=== PATIENT | female | born 1980 ===

== ENCOUNTER 2016-12-18 16:48 | Emergency (ER) | payer OTHER ==
[2016-09-12 13:49] VITALS: BMI 37.4
== END 2016-12-18 20:37 | disposition left against medical advice (07) ==
LOC: H.ER 16:48
DX: Z02.89 Encounter for other administrative examinations (principal)

== ENCOUNTER 2017-02-04 17:39 | Emergency (ER) | payer MEDICAID, OTHER ==
[2017-02-04 17:39] VITALS: BMI 37.4
[2017-02-04 18:10] VITALS: PULSE 86; RESP 18; TEMP 98.1; O2SAT 100
--- NOTE | 2017-02-04 18:31 | ED PDOC ---
HPI: Abdomen Time Seen by Provider: 02/04/17 17:49 Chief Complaint (Nursing): Abdominal Pain Chief Complaint (Provider): Abdominal Pain History Per: Patient Additional Complaint(s): Pt is 36 yo female, no PMH, presents to ED with complaints of lower abdominal cramping, RLQ, that is intermittent and "stabbing" in nature. Pt is approximately 11 weeks , pt is A2 M2. Pt denies spotting or bleeding, nausea or vomiting. Pain has been intensifying. Past Medical History Reviewed: Nursing Documentation, Vital Signs Vital Signs: Last Vital Signs Temp 98.1 F 02/04/17 18:07 Pulse 86 02/04/17 18:07 Resp 18 02/04/17 18:07 BP Pulse Ox 100 02/04/17 18:31 - Medical History PMH: No Chronic Diseases - Surgical History Surgical History: No Surg Hx - Family History Family History: States: No Known Family Hx, Unknown Family Hx - Living Arrangements Living Arrangements: With Family - Social History Current smoker - smoking cessation education provided: No Alcohol: None Drugs: Denies - Home Medications Home Medications: Ambulatory Orders Medication Instructions Recorded Naproxen [Naprosyn] 500 mg PO Q12H #20 tab 07/10/14 Acetaminophen with Codeine 1 tab PO Q8H #10 tab 08/25/14 [Tylenol with Codeine No. 3 300 mg-30 mg] Naproxen [Naprosyn] 500 mg PO Q12H #20 tab 08/25/14 Amoxicillin 875 mg PO BID #20 tab 09/12/16 - Allergies Allergies/Adverse Reactions: Allergies Allergy/AdvReac Type Severity Reaction Status Date / Time No Known Allergies Allergy Verified 07/10/14 08:19 Review of Systems ROS Statement: Except As Marked, All Systems Reviewed And Found Negative Gastrointestinal: Positive for: Abdominal Pain Physical Exam - Reviewed Nursing Documentation Reviewed: Yes Vital Signs Reviewed: Yes - Physical Exam Appears: Positive for: Well, Non-toxic, No Acute Distress Head Exam: Positive for: ATRAUMATIC, NORMAL INSPECTION, NORMOCEPHALIC Skin: Positive for: Normal Color, Warm, DRY Eye Exam: Positive for: EOMI, Normal appearance, PERRL ENT: Positive for: Normal ENT Inspection Neck: Positive for: Normal, Painless ROM Cardiovascular/Chest: Positive for: Regular Rate, Rhythm Respiratory: Positive for: CNT, Normal Breath Sounds Gastrointestinal/Abdominal: Positive for: Normal Exam, Bowel Sounds, Soft Back: Positive for: Normal Inspection Extremity: Positive for: Normal ROM Neurologic/Psych: Positive for: Alert, Oriented - Laboratory Results Result Diagrams: 02/04/17 18:35 - ECG O2 Sat by Pulse Oximetry: 100 Medical Decision Making Medical Decision Making: Pt declined analgesics at this time. CBC WNL Beta 49.50 Blood type Pending Pt educated on Beta level and correlation to an 11 w , US results pending however. Case endorsed to ELIZABETH Aldridge at 20:00 pending US results Disposition - Clinical Impression Clinical Impression: Threatened - Patient ED Disposition Is Patient to be Admitted: No - Disposition Disposition: Transfer of Care ([place]) Disposition Time: 19:49 Condition: STABLE
[2017-02-04 18:55] LABS: BASO % 0.6 % (0.0-2.0); EOS # 0.2 K/uL (0.0-0.7); EOS % 1.9 % (0.0-4.0); HEMOGLOBIN 13.4 g/dL (12.0-16.0); LYMPH # 1.7 K/uL (1.0-4.3); LYMPH % 19.7 % (20.0-40.0); MEAN CORPUSCULAR HEMOGLOBIN 30.3 pg (27.0-31.0); MEAN CORPUSCULAR HGB CONC 34.1 g/dL (33.0-37.0); MEAN PLATELET VOLUME 8.8 fl (7.2-11.7); MONO # 0.6 K/uL (0.0-0.8); MONO % 7.4 % (0.0-10.0); NEUT % 70.4 % (50.0-75.0); RBC 4.42 Mil/uL (3.80-5.20); RED CELL DISTRIBUTION WIDTH 12.3 % (11.5-14.5); WHITE BLOOD COUNT 8.5 K/uL (4.8-10.8)
--- NOTE | 2017-02-04 20:22 | ED PDOC ---
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 Uterus/ cervix: Endometrium: 0.5 cm in thickness. Closed cervix. Nabothian cyst. Ovaries: RIGHT ovary: Not visualized. LEFT ovary: Normal. No adnexal masses. Free fluid: No significant free fluid. IMPRESSION: 1. No intrauterine gestation. DDX: Early IUP, missed , ectopic . 2. Incidental/non -acute findings are described above. Patient is aware of above results. All questions answered. Patient has follow up next week with OB. Disposition - Clinical Impression Clinical Impression: Missed - POA Present On Arrival: None - Disposition Referrals: Ryley Rodriguez MD [Staff Provider] - Disposition: Routine/Home Disposition Time: 22:40 Condition: STABLE Additional Instructions: Follow up as scheduled next week with your OB. Return any time if acutely worse. Instructions: Spontaneous Miscarriage (ED)
[2017-02-04] MEDS ORDERED: Potassium Chloride 20 mEq ER Tab PO ONE (22:58)
--- NOTE | 2017-02-05 12:42 | US ---
Indication: 11 weeks right lower quadrant pain Comparison: Pelvic ultrasound performed 10/06/11 Technique: OB , limited. Findings: The uterus measures approximately 9.9 x 4.1 x 3.1 cm. Anteverted. Endometrium measures approximately 5 mm in diameter. No evidence of intrauterine gestational sac. Nabothian cyst. The right ovary is not visualized. The left ovary measures approximately 2.6 x 3.1 x 2.5 cm. Blood flow is demonstrated to the left ovary. Impression: No evidence of intrauterine gestational sac. If indeed the patient is based on serum beta HCG values, the sonographic findings represent either: Very early IUP; embryonic demise; ectopic gestation. Follow-up with serial quantitative serum beta HCG measurements and post OBGYN follow-up as clinically indicated, since ectopic gestation cannot be excluded based only on sonographic findings. The right ovary is not visualized. Preliminary impression was provided by virtual radiologic.
== END 2017-02-04 23:04 | disposition home or self-care (01) ==
LOC: H.ER 17:39
DX: O20.0 Threatened abortion (principal); Z3A.11 11 weeks gestation of pregnancy